=== PATIENT | female | born 1940 | race African-American/Black ===

== ENCOUNTER 2017-12-25 14:33 | Emergency (ER) | payer MEDICARE, MEDICAID ==
[~2017-12-25] VITALS: Ht 165.1 cm; Wt 60.0 kg
[~2017-12-25 14:33] MED LIST: ATOR10TA69; BENA20TA10 PO; LORA1TAB PO; PANT40TA4; ZET10
[2017-12-25] MEDS ORDERED: SODIUM CHLORIDE 0.9% 1,000 ML IV ONE (14:56)
[2017-12-25] MEDS ORDERED: MORPHINE SULFATE 2 MG/ML CPJ (NOT FOR IM USE) IV ONE (15:00)
[2017-12-25 17:18] LABS: BASOPHILS % 0.3 % (0.0-2.0); EOSINOPHILS % 2.1 % (0.0-5.0); HEMATOCRIT. 37.5 % (36.0-48.0); HEMOGLOBIN. 12.3 g/dL (12.0-16.0); LYMPHOCYTES % 25.2 % (20.0-50.0); MEAN CORPUSCULAR HEMOGLOBIN 29.4 pg (28.0-32.0); MEAN CORPUSCULAR VOLUME 89.7 fL (81.0-99.0); MEAN PLATELET VOLUME 8.3 fl (7.4-10.4); MONOCYTES % 9.5 % (2.0-8.0); NEUTROPHILS % 62.9 % (40.0-76.0); PLATELET 190 x1000/uL (130-400); RED BLOOD CELL COUNT 4.18 mill/uL (4.2-5.4); RED CELL DISTRIBUTION WIDTH 14.8 % (11.6-14.6)
[2017-12-25 17:20] LABS: CHLORIDE 107 mEq/L (98-107)
[2017-12-25 17:22] LABS: INR 1.2; PARTIAL THROMBOPLASTIN TIME 28.3 sec (23.4-31.0); PROTHROMBIN TIME 11.9 sec (9.1-11.1)
[2017-12-25 18:48] LABS: CLARITY URINE CLEAR (CLEAR); COLOR URINE YELLOW (YELLOW); KETONES URINE NEGATIVE (NEGATIVE); LEUKOCYTE ESTERASE URINE 2+ (NEGATIVE); NITRITE URINE NEGATIVE (NEGATIVE); OCCULT BLOOD URINE NEGATIVE (NEGATIVE); PROTEIN URINE NEGATIVE (NEGATIVE); SPECIFIC GRAVITY URINE 1.019 (1.005-1.030)
[2017-12-25 19:00] VITALS: BP 150/79
== END 2017-12-25 19:34 | disposition home or self-care (01) ==
LOC: ER 14:33
DX: N39.0 Urinary tract infection, site not specified (principal); M25.562 Pain in left knee; M25.561 Pain in right knee; R41.82 Altered mental status, unspecified; R53.1 Weakness; E11.9 Type 2 diabetes mellitus without complications; I10 Essential (primary) hypertension; F03.90 Unspecified dementia, unspecified severity, without behavioral disturbance, psychotic disturbance, mood disturbance, and anxiety; Z88.0 Allergy status to penicillin; Z79.899 Other long term (current) drug therapy
CPT/HCPCS: 36415; 70450; 71045; 73560; 74176; 80053; 81003; 83690; 83880; 84484; 85025; 85610; 85730; 86850; 86870; 86900; 86901; 87086; 93005; 93970; 99285; J7030

== ENCOUNTER 2018-02-10 18:03 | Inpatient (IN) | payer MEDICARE, MEDICAID ==
[~2018-02-10] VITALS: Ht 162.6 cm; Wt 59.9 kg
[~2018-02-10 18:03] MED LIST changes: -ATOR10TA69; +ATOR10TA69 PO; -PANT40TA4; +PANT40TA4 PO; -ZET10; +ZET10 PO
[2018-02-10 19:04] LABS: BASOPHILS % 0.5 % (0.0-2.0); EOSINOPHILS % 1.3 % (0.0-5.0); HEMATOCRIT. 42.1 % (36.0-48.0); HEMOGLOBIN. 13.8 g/dL (12.0-16.0); LYMPHOCYTES % 21.7 % (20.0-50.0); MEAN CORPUSCULAR HEMOGLOBIN 28.8 pg (28.0-32.0); MEAN PLATELET VOLUME 8.1 fl (7.4-10.4); MONOCYTES % 9.1 % (2.0-8.0); NEUTROPHILS % 67.4 % (40.0-76.0); PLATELET 263 x1000/uL (130-400); RED BLOOD CELL COUNT 4.78 mill/uL (4.2-5.4)
[2018-02-10 19:09] LABS: CHLORIDE 102 mEq/L (98-107)
[2018-02-10 19:43] LABS: CLARITY URINE CLOUDY (CLEAR); COLOR URINE DARK YELLOW (YELLOW); KETONES URINE TRACE (NEGATIVE); LEUKOCYTE ESTERASE URINE TRACE (NEGATIVE); NITRITE URINE NEGATIVE (NEGATIVE); OCCULT BLOOD URINE NEGATIVE (NEGATIVE); PH URINE 6.5 (4.5-8.0); PROTEIN URINE 1+ (NEGATIVE); SPECIFIC GRAVITY URINE 1.021 (1.005-1.030)
[2018-02-11] VITALS: BP 147/74
[2018-02-11] MEDS ORDERED: IPRATROPIUM/ALBUTEROL 0.5-3(2.5)MG/3ML NEB INH PRN (00:15)
[2018-02-11] MEDS ORDERED: ONDANSETRON HCL 4MG/2ML INJ IV PRN (00:15)
[2018-02-11] MEDS ORDERED: GUAIFENESIN 200MG/10ML SUGAR FREE UDC PO PRN (00:15)
[2018-02-11] MEDS ORDERED: DIPHENHYDRAMINE 50MG/ML VIAL IV PRN (00:15)
[2018-02-11] MEDS ORDERED: DOCUSATE SODIUM 100MG CAPSULE PO PRN (00:15)
[2018-02-11] MEDS ORDERED: NA PHOS,M-B/NA PHOS,DI-BA ENEMA 118ML PR PRN (00:15)
[2018-02-11] MEDS ORDERED: LORAZEPAM 2MG/ML CPJ IV PRN (00:15)
[2018-02-11] MEDS ORDERED: HYDROMORPHONE HCL/PF 2MG/ML CPJ IV PRN (00:15)
[2018-02-11] MEDS ORDERED: CLONIDINE 0.1MG TABLET PO PRN (00:15)
[2018-02-11] MEDS ORDERED: MAGNESIUM/ALUMINUM HYDROXIDE/SIMETHICONE 30ML UDC PO PRN (00:15)
[2018-02-11] MEDS ORDERED: DEXTROSE 50% WATER 50ML SYRINGE IV PRN (01:45)
[2018-02-11] MEDS: SODIUM CHLORIDE 0.45% 1,000 ML IV SCH (02:56)
[2018-02-11 04:39] VITALS: BP 151/84
[2018-02-11 06:15] LABS: CHLORIDE 106 mEq/L (98-107)
[2018-02-11] MEDS: BLOOD SUGAR DIAGNOSTIC STRIP TEST SCH ×4 (06:35→21:00)
[2018-02-11 08:00] VITALS: BP 142/73
[2018-02-11] MEDS: INSULIN LISPRO 100 UNITS/ML SUBCUT SCH ×4 (08:10→21:00)
[2018-02-11] MEDS: ASPIRIN 81MG EC TABLET PO SCH (09:09)
[2018-02-11] MEDS: ENOXAPARIN 40MG/0.4ML SYR SUBCUT SCH (09:10)
[2018-02-11] MEDS ORDERED: PNEUMOCOCCAL 23-VAL P-SAC VAC 0.5 ML IM ONE (09:45)
[2018-02-11] MEDS ORDERED: INFLUENZA VIRUS VACCINE(AFLURIA) 0.5ML SYR IM ONE (09:45)
[2018-02-11 12:00] VITALS: BP 119/65
[2018-02-11 16:00] VITALS: BP 119/65
[2018-02-11] MEDS ORDERED: MULT-1146 MT (19:05)
[2018-02-11] MEDS ORDERED: OMEP20CA10 MT (19:05)
[2018-02-11] MEDS ORDERED: FURO-152 MT (19:05)
[2018-02-11] MEDS ORDERED: ZOLP5TAB8 MT (19:05)
[2018-02-11] MEDS ORDERED: IBUP-2030 MT (19:05)
[2018-02-11 20:14] LABS: VITAMIN B12 SERUM 787 pg/mL (211-911)
[2018-02-11] MEDS: AMLODIPINE 5MG TABLET PO SCH (21:00)
[2018-02-11] MEDS: LORAZEPAM 2MG/ML CPJ IV PRN (22:26)
[2018-02-12 04:00] VITALS: BP 124/70
[2018-02-12] MEDS: SODIUM CHLORIDE 0.45% 1,000 ML IV SCH (04:33)
[2018-02-12] MEDS: BLOOD SUGAR DIAGNOSTIC STRIP TEST SCH ×4 (06:42→21:00)
[2018-02-12] MEDS: INSULIN LISPRO 100 UNITS/ML SUBCUT SCH ×4 (07:59→21:00)
[2018-02-12 08:00] VITALS: BP 162/93
[2018-02-12 08:30] LABS: BASOPHILS % 0.6 % (0.0-2.0); EOSINOPHILS % 2.3 % (0.0-5.0); HEMATOCRIT. 40.4 % (36.0-48.0); HEMOGLOBIN. 13.4 g/dL (12.0-16.0); LYMPHOCYTES % 19.6 % (20.0-50.0); MEAN CORPUSCULAR HEMOGLOBIN 29.1 pg (28.0-32.0); MEAN CORPUSCULAR VOLUME 87.9 fL (81.0-99.0); MEAN PLATELET VOLUME 8.1 fl (7.4-10.4); MONOCYTES % 10.8 % (2.0-8.0); NEUTROPHILS % 66.7 % (40.0-76.0); PLATELET 250 x1000/uL (130-400)
[2018-02-12] MEDS: ASPIRIN 81MG EC TABLET PO SCH ×2 (09:00→09:08)
[2018-02-12] MEDS: AMLODIPINE 5MG TABLET PO SCH ×3 (09:00→21:00)
[2018-02-12] MEDS: HYDROCODONE/ACETAMINOPHEN 5/325MG TABLET PO PRN ×2 (09:07→09:27)
[2018-02-12] MEDS: ENOXAPARIN 40MG/0.4ML SYR SUBCUT SCH (09:08)
[2018-02-12 09:39] LABS: CHLORIDE 106 mEq/L (98-107)
[2018-02-12 09:51] LABS: LDL CHOLESTEROL 40 mg/dL (5-100)
[2018-02-12 09:52] LABS: HDL CHOLESTEROL 81 mg/dL (40-59); T4 FREE 1.33 ng/dL (0.76-1.46)
[2018-02-12 12:00] VITALS: BP 148/82
[2018-02-12 16:00] VITALS: BP 148/82
[2018-02-12] MEDS: LORAZEPAM 2MG/ML CPJ IV PRN (19:59)
[2018-02-12 20:00] VITALS: BP 139/92
[2018-02-13] VITALS (7 sets, daily range): BP systolic 100–169; BP diastolic 69–106
[2018-02-13] MEDS: SODIUM CHLORIDE 0.45% 1,000 ML IV SCH (03:00)
[2018-02-13 07:14] LABS: HEMATOCRIT 38.1 % (36.0-48.0); HEMOGLOBIN 12.4 g/dL (12.0-16.0); MEAN CORPUSCULAR HEMOGLOBIN 28.6 pg (28.0-32.0); MEAN CORPUSCULAR VOLUME 88.1 fL (81.0-99.0); PLATELET 262 x1000/uL (130-400); RED BLOOD CELL COUNT 4.33 mill/uL (4.2-5.4)
[2018-02-13 08:02] LABS: CHLORIDE 102 mEq/L (98-107)
[2018-02-13] MEDS: INSULIN LISPRO 100 UNITS/ML SUBCUT SCH ×4 (08:10→21:00)
[2018-02-13] MEDS ORDERED: ZOLP10TA6 MT (08:45)
[2018-02-13] MEDS: AMLODIPINE 5MG TABLET PO SCH ×2 (08:54→21:01)
[2018-02-13] MEDS: ASPIRIN 81MG EC TABLET PO SCH (08:54)
[2018-02-13] MEDS: RISPERIDONE 1MG TABLET PO SCH ×2 (08:54→21:01)
[2018-02-13] MEDS: MEMANTINE HCL 5MG TABLET PO SCH (08:55)
[2018-02-13] MEDS: ENOXAPARIN 40MG/0.4ML SYR SUBCUT SCH (08:55)
[2018-02-13] MEDS: BLOOD SUGAR DIAGNOSTIC STRIP TEST SCH ×3 (12:40→21:46)
[2018-02-13] MEDS: LISINOPRIL 10MG TABLET PO SCH ×2 (13:15→21:02)
[2018-02-13] MEDS: ACETAMINOPHEN 325MG TABLET PO PRN (21:35)
[2018-02-14] VITALS: BP 92/56
[2018-02-14 04:00] VITALS: BP 102/53
[2018-02-14] MEDS: INSULIN LISPRO 100 UNITS/ML SUBCUT SCH ×3 (06:18→18:10)
[2018-02-14] MEDS: BLOOD SUGAR DIAGNOSTIC STRIP TEST SCH ×3 (06:18→17:40)
[2018-02-14 08:00] VITALS: BP 104/59
[2018-02-14] MEDS ORDERED: HALOPERIDOL LACTATE 5MG/ML VIAL IM PRN (08:00)
[2018-02-14] MEDS: ENOXAPARIN 40MG/0.4ML SYR SUBCUT SCH (08:27)
[2018-02-14] MEDS: RISPERIDONE 1MG TABLET PO SCH (08:28)
[2018-02-14] MEDS: ASPIRIN 81MG EC TABLET PO SCH (08:28)
[2018-02-14] MEDS: MEMANTINE HCL 5MG TABLET PO SCH (08:28)
[2018-02-14] MEDS: LISINOPRIL 10MG TABLET PO SCH (08:29)
[2018-02-14] MEDS: AMLODIPINE 5MG TABLET PO SCH (08:30)
[2018-02-14] MEDS: ACETAMINOPHEN 325MG TABLET PO PRN (09:50)
[2018-02-14] MEDS: LORAZEPAM 2MG/ML CPJ IV PRN (11:19)
[2018-02-14 12:00] VITALS: BP 98/54
[2018-02-14 13:29] VITALS: BP 104/87
[2018-02-14 16:00] VITALS: BP 100/56
== END 2018-02-14 19:05 | disposition home or self-care (01) | DRG 73 ==
LOC: ER 18:03 → 7WST 20:46 → ENRESERV 22:09
PROVIDERS: ADMIT Internal Medicine; ATTEND Internal Medicine
DX: G90.8 Other disorders of autonomic nervous system (principal); G93.41 Metabolic encephalopathy; E86.0 Dehydration; F03.90 Unspecified dementia, unspecified severity, without behavioral disturbance, psychotic disturbance, mood disturbance, and anxiety; M19.90 Unspecified osteoarthritis, unspecified site; E11.9 Type 2 diabetes mellitus without complications; E78.5 Hyperlipidemia, unspecified; I11.0 Hypertensive heart disease with heart failure; I50.9 Heart failure, unspecified; I25.10 Atherosclerotic heart disease of native coronary artery without angina pectoris; K21.9 Gastro-esophageal reflux disease without esophagitis; Z74.01 Bed confinement status; Z79.899 Other long term (current) drug therapy; Z88.0 Allergy status to penicillin
CPT/HCPCS: 36415; 71045; 80048; 80061; 82607; 82962; 83880; 84439; 84443; 84484; 85027; 90686; 90732; 93005; 93306; 99285; J1200; J1630; J1650; J2060

== ENCOUNTER 2018-04-24 19:22 | Inpatient (IN) | payer MEDICARE, MEDICAID ==
[~2018-04-24] VITALS: Ht 167.6 cm; Wt 71.2 kg
[~2018-04-24 19:22] MED LIST changes: +FURO-152 MT; +IBUP-2030 MT; +MULT-1146 MT; +OMEP20CA10 MT; -PANT40TA4 PO; +ZOLP10TA6 MT
[2018-04-24] MEDS ORDERED: SODIUM CHLORIDE 0.9% 1,000 ML IV ONE (20:57)
[2018-04-24] MEDS ORDERED: LEVOFLOXACIN 750MG PREMIX 150 ML IV ONE (21:00)
[2018-04-24 22:46] LABS: CLARITY URINE TURBID (CLEAR); COLOR URINE DARK YELLOW (YELLOW); KETONES URINE TRACE (NEGATIVE); LEUKOCYTE ESTERASE URINE 3+ (NEGATIVE); NITRITE URINE NEGATIVE (NEGATIVE); OCCULT BLOOD URINE 1+ (NEGATIVE); PH URINE 5.5 (4.5-8.0); PROTEIN URINE 1+ (NEGATIVE); SPECIFIC GRAVITY URINE 1.023 (1.005-1.030)
[2018-04-24 23:09] LABS: BASOPHILS % 0.5 % (0.0-2.0); EOSINOPHILS % 0.5 % (0.0-5.0); HEMATOCRIT. 38.3 % (36.0-48.0); HEMOGLOBIN. 12.6 g/dL (12.0-16.0); MEAN CORPUSCULAR VOLUME 87.9 fL (81.0-99.0); MONOCYTES % 5.8 % (2.0-8.0); NEUTROPHILS % 81.2 % (40.0-76.0); PLATELET 297 x1000/uL (130-400); RED BLOOD CELL COUNT 4.36 mill/uL (4.2-5.4); RED CELL DISTRIBUTION WIDTH 15.4 % (11.6-14.6)
[2018-04-24 23:15] LABS: CHLORIDE 102 mEq/L (98-107); INR 1.1; PARTIAL THROMBOPLASTIN TIME 29.5 sec (23.4-31.0); PROTHROMBIN TIME 11.4 sec (9.1-11.1)
[2018-04-25] MEDS ORDERED: CLONIDINE 0.1MG TABLET PO PRN (00:15)
[2018-04-25] MEDS ORDERED: MAGNESIUM/ALUMINUM HYDROXIDE/SIMETHICONE 30ML UDC PO PRN (00:15)
[2018-04-25] MEDS ORDERED: IPRATROPIUM/ALBUTEROL 0.5-3(2.5)MG/3ML NEB INH PRN (00:15)
[2018-04-25] MEDS ORDERED: DIPHENHYDRAMINE 50MG/ML VIAL IV PRN (00:15)
[2018-04-25] MEDS ORDERED: ACETAMINOPHEN 650MG SUPP PR PRN (00:15)
[2018-04-25] MEDS ORDERED: DOCUSATE SODIUM 100MG CAPSULE PO PRN (00:15)
[2018-04-25] MEDS ORDERED: ACETAMINOPHEN 650MG/20.3ML UDC GT PRN (00:15)
[2018-04-25] MEDS ORDERED: NA PHOS,M-B/NA PHOS,DI-BA ENEMA 118ML PR PRN (00:15)
[2018-04-25] MEDS ORDERED: ACETAMINOPHEN 325MG TABLET PO PRN (00:15)
[2018-04-25] MEDS ORDERED: GUAIFENESIN 200MG/10ML SUGAR FREE UDC PO PRN (00:15)
[2018-04-25] MEDS ORDERED: ONDANSETRON HCL 4MG/2ML INJ IV PRN (00:15)
[2018-04-25 06:10] VITALS: BP 141/90
[2018-04-25 07:30] VITALS: BP 139/66
[2018-04-25 08:00] VITALS: BP 139/66
[2018-04-25] MEDS: SODIUM CHLORIDE 0.9% 1,000 ML IV SCH ×2 (10:21→21:27)
[2018-04-25 12:00] VITALS: BP 145/73
[2018-04-25] MEDS ORDERED: HALOPERIDOL LACTATE 5MG/ML VIAL IM PRN (12:30)
[2018-04-25 13:43] LABS: BASOPHILS % 0.4 % (0.0-2.0); EOSINOPHILS % 1.2 % (0.0-5.0); HEMATOCRIT. 38.7 % (36.0-48.0); HEMOGLOBIN. 12.6 g/dL (12.0-16.0); MEAN CORPUSCULAR HEMOGLOBIN 28.9 pg (28.0-32.0); MEAN CORPUSCULAR VOLUME 88.6 fL (81.0-99.0); MEAN PLATELET VOLUME 7.9 fl (7.4-10.4); MONOCYTES % 7.1 % (2.0-8.0); NEUTROPHILS % 73.3 % (40.0-76.0); PLATELET 283 x1000/uL (130-400); RED BLOOD CELL COUNT 4.37 mill/uL (4.2-5.4); RED CELL DISTRIBUTION WIDTH 15.7 % (11.6-14.6)
[2018-04-25 13:54] LABS: CLARITY URINE CLEAR (CLEAR); COLOR URINE YELLOW (YELLOW); KETONES URINE NEGATIVE (NEGATIVE); LEUKOCYTE ESTERASE URINE 2+ (NEGATIVE); NITRITE URINE NEGATIVE (NEGATIVE); OCCULT BLOOD URINE 2+ (NEGATIVE); PH URINE 6.5 (4.5-8.0); PROTEIN URINE 1+ (NEGATIVE); SPECIFIC GRAVITY URINE 1.004 (1.005-1.030); UROBILINOGEN URINE 0.2 E.U./dL (0.2-1.0)
[2018-04-25 14:10] LABS: CHLORIDE 108 mEq/L (98-107)
[2018-04-25] MEDS ORDERED: ZOLP5TAB8 MT (14:29)
[2018-04-25] MEDS ORDERED: LORA0.5T2 PO (14:29)
[2018-04-25 15:05] LABS: *AMPHETAMINES SCREEN URINE NEGATIVE (NEGATIVE); *BARBITURATES SCREEN URINE NEGATIVE (NEGATIVE); *BENZODIAZEPINES SCREEN URINE NEGATIVE (NEGATIVE); *COCAINE SCREEN URINE NEGATIVE (NEGATIVE)
[2018-04-25 15:06] LABS: CANNABINOID URINE SCREEN NEGATIVE (NEGATIVE); METHADONE URINE SCREEN NEGATIVE (NEGATIVE); OPIATES URINE SCREEN NEGATIVE (NEGATIVE); PHENCYCLIDINE URINE SCREEN NEGATIVE (NEGATIVE)
[2018-04-25 16:00] VITALS: BP 146/76
[2018-04-25] MEDS: LAMOTRIGINE 25MG TABLET PO SCH (17:57)
[2018-04-25 20:19] VITALS: BP 142/73
[2018-04-25] MEDS: SODIUM CHLORIDE 0.9% INJ 3ML FLUSH IVF SCH ×2 (21:23→21:27)
[2018-04-25] MEDS: ENOXAPARIN 40MG/0.4ML SYR SUBCUT SCH (21:24)
[2018-04-26] VITALS: BP 137/71
[2018-04-26 04:00] VITALS: BP 147/92
[2018-04-26] MEDS: SODIUM CHLORIDE 0.9% INJ 3ML FLUSH IVF SCH ×2 (06:00→14:00)
[2018-04-26] MEDS: LAMOTRIGINE 25MG TABLET PO SCH ×2 (09:00→09:33)
[2018-04-26] MEDS: SODIUM CHLORIDE 0.9% 1,000 ML IV SCH (09:34)
[2018-04-26 16:56] VITALS: BP 133/70
[2018-04-26] MEDS ORDERED: LAM25 MT (17:27)
[2018-04-26] MEDS: ENOXAPARIN 40MG/0.4ML SYR SUBCUT SCH (21:00)
== END 2018-04-26 23:40 | disposition home or self-care (01) | DRG 70 ==
LOC: ER 19:49 → 6WST 04-25 00:08 → EDBEDREQ 04-25 00:11 → EDBEDREQTM 04-25 00:11 → ENRESERV 04-25 04:46
PROVIDERS: ADMIT Family Medicine; ATTEND Family Medicine
DX: G93.41 Metabolic encephalopathy (principal); E43 Unspecified severe protein-calorie malnutrition; N39.0 Urinary tract infection, site not specified; E11.9 Type 2 diabetes mellitus without complications; E86.0 Dehydration; F03.90 Unspecified dementia, unspecified severity, without behavioral disturbance, psychotic disturbance, mood disturbance, and anxiety; G40.909 Epilepsy, unspecified, not intractable, without status epilepticus; I10 Essential (primary) hypertension; K21.9 Gastro-esophageal reflux disease without esophagitis; M19.90 Unspecified osteoarthritis, unspecified site; Z74.01 Bed confinement status; Z88.0 Allergy status to penicillin; Z68.25 Body mass index [BMI] 25.0-25.9, adult; Z79.899 Other long term (current) drug therapy
CPT/HCPCS: 36415; 71045; 80305; 83605; 83880; 84484; 93005; 99285; A6261; J1200; J1630; J1650; J1956; J7030

== ENCOUNTER 2018-06-29 13:24 | Inpatient (IN) | payer MEDICARE, MEDICAID ==
[~2018-06-29] VITALS: Ht 152.4 cm; Wt 55.3 kg
[~2018-06-29 13:24] MED LIST changes: -IBUP-2030 MT; +LAM25 MT; +LORA0.5T2 PO; -LORA1TAB PO; -ZET10 PO; -ZOLP10TA6 MT
[2018-06-29 15:25] LABS: BASOPHILS % 0.5 % (0.0-2.0); EOSINOPHILS % 1.2 % (0.0-5.0); HEMATOCRIT. 35.7 % (36.0-48.0); HEMOGLOBIN. 11.7 g/dL (12.0-16.0); LYMPHOCYTES % 35.7 % (20.0-50.0); MEAN CORPUSCULAR VOLUME 88.7 fL (81.0-99.0); MEAN PLATELET VOLUME 8.1 fl (7.4-10.4); NEUTROPHILS % 52.6 % (40.0-76.0); PLATELET 236 x1000/uL (130-400); RED BLOOD CELL COUNT 4.02 mill/uL (4.2-5.4); RED CELL DISTRIBUTION WIDTH 15.8 % (11.6-14.6)
[2018-06-29 15:31] LABS: CHLORIDE 113 mEq/L (98-107); INR 1.1; PROTHROMBIN TIME 11.1 sec (9.1-11.1)
[2018-06-29 15:37] LABS: ETHANOL BLOOD < 10 mg/dL
[2018-06-29] MEDS ORDERED: POTASSIUM CHLORIDE 20MEQ TABLET SR PO ONE (17:30)
[2018-06-29 19:31] LABS: CLARITY URINE TURBID (CLEAR); COLOR URINE DARK YELLOW (YELLOW); KETONES URINE 1+ (NEGATIVE); LEUKOCYTE ESTERASE URINE 2+ (NEGATIVE); NITRITE URINE NEGATIVE (NEGATIVE); OCCULT BLOOD URINE TRACE (NEGATIVE); PROTEIN URINE TRACE (NEGATIVE); SPECIFIC GRAVITY URINE 1.028 (1.005-1.030)
[2018-06-29 20:17] LABS: *AMPHETAMINES SCREEN URINE NEGATIVE (NEGATIVE); *BARBITURATES SCREEN URINE NEGATIVE (NEGATIVE); *BENZODIAZEPINES SCREEN URINE NEGATIVE (NEGATIVE); *COCAINE SCREEN URINE NEGATIVE (NEGATIVE)
[2018-06-29 20:18] LABS: CANNABINOID URINE SCREEN NEGATIVE (NEGATIVE); METHADONE URINE SCREEN NEGATIVE (NEGATIVE); OPIATES URINE SCREEN NEGATIVE (NEGATIVE); PHENCYCLIDINE URINE SCREEN NEGATIVE (NEGATIVE)
[2018-06-30] MEDS ORDERED: LORAZEPAM 0.5MG TABLET PO ONE (14:45)
[2018-06-30] MEDS ORDERED: NITROFURANTOIN 100MG M/M CAPSULE PO ONE (14:45)
[2018-06-30] MEDS ORDERED: FLUCONAZOLE 150MG TABLET PO NR (16:15)
[2018-06-30] MEDS ORDERED: LORAZEPAM 0.5MG TABLET PO NR (20:15)
[2018-06-30] MEDS ORDERED: NITROFURANTOIN 100MG M/M CAPSULE PO NR (20:15)
[2018-07-01] MEDS ORDERED: ACETAMINOPHEN 325MG TABLET PO PRN (08:45)
[2018-07-01] MEDS ORDERED: LORAZEPAM 2MG/ML CPJ IV PRN ×2 (08:45→10:15)
[2018-07-01] MEDS ORDERED: ONDANSETRON HCL 4MG/2ML INJ IV PRN (08:45)
[2018-07-01] MEDS ORDERED: LEVOFLOXACIN 500MG PREMIX 100 ML IV NR (09:15)
[2018-07-01 12:00] VITALS: BP 117/64
[2018-07-01] MEDS: LAMOTRIGINE 25MG TABLET PO SCH (12:00)
[2018-07-01 12:16] VITALS: BP 117/76
[2018-07-01] MEDS: BENAZEPRIL 10MG TABLET PO SCH (13:00)
[2018-07-01 16:00] VITALS: BP 134/62
[2018-07-01 20:00] VITALS: BP 147/75
[2018-07-01] MEDS: RISPERIDONE 1MG TABLET PO SCH (22:33)
[2018-07-01] MEDS: ATORVASTATIN CALCIUM 10MG TABLET PO SCH (22:33)
[2018-07-02] VITALS: BP 154/68
[2018-07-02 04:00] VITALS: BP 165/75
[2018-07-02] MEDS: OMEPRAZOLE 20MG CAPSULE EXTENDED RELEASE PO SCH (06:37)
[2018-07-02 07:49] LABS: BASOPHILS % 0.7 % (0.0-2.0); EOSINOPHILS % 1.9 % (0.0-5.0); HEMATOCRIT. 39.6 % (36.0-48.0); HEMOGLOBIN. 12.9 g/dL (12.0-16.0); LYMPHOCYTES % 33.3 % (20.0-50.0); MEAN CORPUSCULAR HEMOGLOBIN 28.9 pg (28.0-32.0); MEAN PLATELET VOLUME 8.3 fl (7.4-10.4); MONOCYTES % 10.8 % (2.0-8.0); NEUTROPHILS % 53.3 % (40.0-76.0); PLATELET 242 x1000/uL (130-400); RED BLOOD CELL COUNT 4.45 mill/uL (4.2-5.4); RED CELL DISTRIBUTION WIDTH 16.1 % (11.6-14.6)
[2018-07-02 07:56] LABS: CHLORIDE 110 mEq/L (98-107)
[2018-07-02 08:00] VITALS: BP 134/64
[2018-07-02] MEDS: BENAZEPRIL 10MG TABLET PO SCH (08:22)
[2018-07-02] MEDS: RISPERIDONE 1MG TABLET PO SCH ×2 (08:22→21:54)
[2018-07-02] MEDS: LAMOTRIGINE 25MG TABLET PO SCH (08:22)
[2018-07-02 12:00] VITALS: BP 132/55
[2018-07-02] MEDS ORDERED: LEVOFLOXACIN 250MG PREMIX 50 ML IV SCH (12:00)
[2018-07-02 16:00] VITALS: BP_SYST 105; BP_SYST 133; BP_DIAS 62; BP_DIAS 67
[2018-07-02 20:00] VITALS: BP 107/63
[2018-07-02] MEDS: ATORVASTATIN CALCIUM 10MG TABLET PO SCH (21:54)
[2018-07-03] VITALS: BP 99/54
[2018-07-03 04:00] VITALS: BP 108/66
[2018-07-03] MEDS: OMEPRAZOLE 20MG CAPSULE EXTENDED RELEASE PO SCH (06:20)
[2018-07-03] MEDS: LAMOTRIGINE 25MG TABLET PO SCH (09:00)
[2018-07-03] MEDS: BENAZEPRIL 10MG TABLET PO SCH (09:00)
[2018-07-03] MEDS: RISPERIDONE 1MG TABLET PO SCH ×2 (09:00→21:00)
[2018-07-03] MEDS: LEVOFLOXACIN 250MG TABLET PO SCH (11:00)
[2018-07-03 20:00] VITALS: BP 151/99
[2018-07-03] MEDS: ATORVASTATIN CALCIUM 10MG TABLET PO SCH (21:00)
[2018-07-04] VITALS: BP 149/73
[2018-07-04 04:00] VITALS: BP 136/80
[2018-07-04 07:00] VITALS: BP 184/91
[2018-07-04] MEDS: OMEPRAZOLE 20MG CAPSULE EXTENDED RELEASE PO SCH (07:20)
[2018-07-04] MEDS: BENAZEPRIL 10MG TABLET PO SCH (09:40)
[2018-07-04] MEDS: RISPERIDONE 1MG TABLET PO SCH (09:40)
[2018-07-04] MEDS: LEVOFLOXACIN 250MG TABLET PO SCH (09:40)
[2018-07-04] MEDS: LAMOTRIGINE 25MG TABLET PO SCH (09:40)
[2018-07-04 09:51] VITALS: BP 174/95
[2018-07-04 10:20] VITALS: BP 174/95
[2018-07-04 12:00] VITALS: BP 96/33
== END 2018-07-04 12:20 | DRG 689 ==
LOC: ER 13:24 → 6EST 06-30 17:07 → ENRESERV 07-01 10:21 → CANRESERV 07-01 10:21
PROVIDERS: ADMIT Internal Medicine; ATTEND Internal Medicine
DX: N39.0 Urinary tract infection, site not specified (principal); G93.41 Metabolic encephalopathy; E44.0 Moderate protein-calorie malnutrition; I50.32 Chronic diastolic (congestive) heart failure; E87.0 Hyperosmolality and hypernatremia; G40.909 Epilepsy, unspecified, not intractable, without status epilepticus; I11.0 Hypertensive heart disease with heart failure; F03.90 Unspecified dementia, unspecified severity, without behavioral disturbance, psychotic disturbance, mood disturbance, and anxiety; E87.6 Hypokalemia; E87.8 Other disorders of electrolyte and fluid balance, not elsewhere classified; K21.9 Gastro-esophageal reflux disease without esophagitis; Z82.49 Family history of ischemic heart disease and other diseases of the circulatory system; Z91.14 Patient's other noncompliance with medication regimen; Z88.0 Allergy status to penicillin; Z68.23 Body mass index [BMI] 23.0-23.9, adult
CPT/HCPCS: 99284; P9612; 36415; 71045; 80048; 80305; 80307; 80329; 82962; 84484; 93005; 93970; J1956; J2060; J7050

== ENCOUNTER 2018-09-03 12:40 | Emergency (ER) | payer MEDICARE, MEDICAID ==
[~2018-09-03] VITALS: Ht 167.6 cm; Wt 60.0 kg
[2018-09-03 13:41] LABS: BASOPHILS % 0.9 % (0.0-2.0); EOSINOPHILS % 0.6 % (0.0-5.0); HEMATOCRIT. 39.1 % (36.0-48.0); HEMOGLOBIN. 12.8 g/dL (12.0-16.0); LYMPHOCYTES % 14.3 % (20.0-50.0); MEAN CORPUSCULAR HEMOGLOBIN 28.9 pg (28.0-32.0); MEAN CORPUSCULAR VOLUME 88.2 fL (81.0-99.0); MEAN PLATELET VOLUME 7.9 fl (7.4-10.4); MONOCYTES % 5.1 % (2.0-8.0); NEUTROPHILS % 79.1 % (40.0-76.0); PLATELET 283 x1000/uL (130-400); RED BLOOD CELL COUNT 4.44 mill/uL (4.2-5.4); RED CELL DISTRIBUTION WIDTH 16.9 % (11.6-14.6)
[2018-09-03 14:19] LABS: CHLORIDE 107 mEq/L (98-107)
[2018-09-03 15:36] LABS: CLARITY URINE CLOUDY (CLEAR); COLOR URINE YELLOW (YELLOW); KETONES URINE TRACE (NEGATIVE); LEUKOCYTE ESTERASE URINE 1+ (NEGATIVE); NITRITE URINE POSITIVE (NEGATIVE); OCCULT BLOOD URINE NEGATIVE (NEGATIVE); PROTEIN URINE 1+ (NEGATIVE); SPECIFIC GRAVITY URINE 1.018 (1.005-1.030)
[2018-09-03 19:46] VITALS: BP 141/128
== END 2018-09-03 20:17 | disposition home or self-care (01) ==
LOC: ER 12:45
DX: R55 Syncope and collapse (principal); R56.9 Unspecified convulsions; I11.0 Hypertensive heart disease with heart failure; I50.9 Heart failure, unspecified; F03.90 Unspecified dementia, unspecified severity, without behavioral disturbance, psychotic disturbance, mood disturbance, and anxiety; K21.9 Gastro-esophageal reflux disease without esophagitis; E78.00 Pure hypercholesterolemia, unspecified; Z87.440 Personal history of urinary (tract) infections; Z88.0 Allergy status to penicillin; Z79.899 Other long term (current) drug therapy
CPT/HCPCS: 36415; 70450; 71045; 80053; 81003; 83605; 84443; 85025; 99284; P9612

== ENCOUNTER 2018-12-27 18:36 | Inpatient (IN) | payer MEDICARE, MEDICAID ==
[~2018-12-27] VITALS: Ht 160 cm; Wt 50.8 kg
[~2018-12-27 18:36] MED LIST changes: -OMEP20CA10 MT; +OMEP20CA5 MT
[2018-12-27] MEDS ORDERED: SODIUM CHLORIDE 0.9% 500 ML IV ONE (19:13)
[2018-12-27 19:45] LABS: CHLORIDE 110 mEq/L (98-107)
[2018-12-27 19:46] LABS: BASOPHILS % 0.6 % (0.0-2.0); HEMATOCRIT. 37.8 % (36.0-48.0); HEMOGLOBIN. 12.4 g/dL (12.0-16.0); LYMPHOCYTES % 24.7 % (20.0-50.0); MEAN CORPUSCULAR HEMOGLOBIN 28.8 pg (28.0-32.0); MEAN PLATELET VOLUME 7.9 fl (7.4-10.4); MONOCYTES % 6.6 % (2.0-8.0); NEUTROPHILS % 67.1 % (40.0-76.0); PLATELET 258 x1000/uL (130-400); RED CELL DISTRIBUTION WIDTH 15.7 % (11.6-14.6)
[2018-12-27 19:49] LABS: INR 1.1; PROTHROMBIN TIME 11.1 sec (9.6-11.0)
[2018-12-27 19:54] LABS: CREATINE KINASE 43 IU/L (26-192)
[2018-12-27 19:56] LABS: CREATINE KINASE MB FRACTION < 1.0 ng/mL (0.5-3.6)
[2018-12-27] MEDS ORDERED: GUAIFENESIN 200MG/10ML SUGAR FREE UDC PO PRN (21:30)
[2018-12-27] MEDS ORDERED: ACETAMINOPHEN 325MG TABLET PO PRN (21:30)
[2018-12-27] MEDS ORDERED: ONDANSETRON HCL 4MG/2ML INJ IV PRN (21:30)
[2018-12-27] MEDS ORDERED: MAGNESIUM/ALUMINUM HYDROXIDE/SIMETHICONE 30ML UDC PO PRN (21:30)
[2018-12-27 23:50] VITALS: BP 155/87
[2018-12-28] VITALS: BP 140/83
[2018-12-28] MEDS: SODIUM CHLORIDE 0.45% 1,000 ML IV SCH ×2 (00:51→18:09)
[2018-12-28 08:00] VITALS: BP 151/96
[2018-12-28 08:58] LABS: BASOPHILS % 0.4 % (0.0-2.0); EOSINOPHILS % 1.3 % (0.0-5.0); HEMATOCRIT. 35.9 % (36.0-48.0); HEMOGLOBIN. 11.8 g/dL (12.0-16.0); LYMPHOCYTES % 34.3 % (20.0-50.0); MEAN CORPUSCULAR HEMOGLOBIN 28.7 pg (28.0-32.0); MEAN CORPUSCULAR VOLUME 87.8 fL (81.0-99.0); MONOCYTES % 8.5 % (2.0-8.0); NEUTROPHILS % 55.5 % (40.0-76.0); PLATELET 262 x1000/uL (130-400)
[2018-12-28 09:14] LABS: CHLORIDE 111 mEq/L (98-107)
[2018-12-28] MEDS: ENOXAPARIN 40MG/0.4ML SYR SUBCUT SCH (10:33)
[2018-12-28] MEDS ORDERED: LORAZEPAM 2MG/ML CPJ IV PRN (11:15)
[2018-12-28 12:00] VITALS: BP 140/68
[2018-12-28 16:00] VITALS: BP 172/108
[2018-12-28] MEDS: CLONIDINE 0.1MG TABLET PO PRN (18:09)
[2018-12-29] VITALS: BP 190/80
[2018-12-29] MEDS: CLONIDINE 0.1MG TABLET PO PRN ×2 (00:07→09:39)
[2018-12-29 04:00] VITALS: BP 153/98
[2018-12-29 08:25] VITALS: BP 135/111
[2018-12-29] MEDS: ENOXAPARIN 40MG/0.4ML SYR SUBCUT SCH (08:47)
[2018-12-29] MEDS: SODIUM CHLORIDE 0.45% 1,000 ML IV SCH (08:50)
[2018-12-29] MEDS ORDERED: HYDRALAZINE 20MG/ML VIAL IV PRN (11:45)
[2018-12-29 12:01] VITALS: BP 123/64
[2018-12-29] MEDS: LISINOPRIL 20MG TABLET PO SCH (12:10)
[2018-12-29 15:19] VITALS: BP 127/81
[2018-12-29 20:00] VITALS: BP 152/76
[2018-12-30] VITALS: BP 144/76
[2018-12-30] MEDS: SODIUM CHLORIDE 0.45% 1,000 ML IV SCH (02:37)
[2018-12-30 04:00] VITALS: BP 138/72
[2018-12-30 08:00] VITALS: BP 141/87
[2018-12-30] MEDS: LISINOPRIL 20MG TABLET PO SCH (08:36)
[2018-12-30] MEDS: ENOXAPARIN 40MG/0.4ML SYR SUBCUT SCH (08:48)
[2018-12-30 11:49] VITALS: BP 153/90
[2018-12-30 15:03] VITALS: BP 153/90
[2018-12-30 15:51] VITALS: BP 139/77
== END 2018-12-30 18:33 | DRG 73 ==
LOC: ER 18:36 → 5WST 20:30 → EDBEDREQTM 20:36 → EDBEDREQ 20:36 → ENRESERV 21:50 → CANBEDREQ 12-28 09:57
PROVIDERS: ADMIT Hospitalist; ATTEND Hospitalist
DX: G90.8 Other disorders of autonomic nervous system (principal); E43 Unspecified severe protein-calorie malnutrition; Z68.1 Body mass index [BMI] 19.9 or less, adult; F03.90 Unspecified dementia, unspecified severity, without behavioral disturbance, psychotic disturbance, mood disturbance, and anxiety; I50.9 Heart failure, unspecified; I11.0 Hypertensive heart disease with heart failure; E78.5 Hyperlipidemia, unspecified; G40.909 Epilepsy, unspecified, not intractable, without status epilepticus; K21.9 Gastro-esophageal reflux disease without esophagitis; E78.00 Pure hypercholesterolemia, unspecified; Z66 Do not resuscitate; Z82.49 Family history of ischemic heart disease and other diseases of the circulatory system; Z79.899 Other long term (current) drug therapy; Z88.0 Allergy status to penicillin; Z87.440 Personal history of urinary (tract) infections
CPT/HCPCS: 36415; 71045; 82550; 82553; 83605; 83735; 83880; 84443; 84484; 93005; 93970; 99285; J1650; J7040

== ENCOUNTER 2019-02-05 13:20 | Inpatient (IN) | payer MEDICAID, MEDICARE ==
[~2019-02-05] VITALS: Ht 170.2 cm; Wt 63.6 kg
[2019-02-05] MEDS ORDERED: CEFEPIME 1,000 MG in DEXTROSE 5% WATER 50 ML IV STA (13:41)
[2019-02-05] MEDS ORDERED: CEFEPIME 1,000 MG in DEXTROSE 5% WATER 50 ML IV SCH (13:45)
[2019-02-05] MEDS ORDERED: VANCOMYCIN 1 G PREMIX 200 ML IV ONE (13:45)
[2019-02-05] MEDS ORDERED: SODIUM CHLORIDE 0.9% 1000ML BAG (SEPSIS BOLUS) IV ONE (13:45)
[2019-02-05 14:20] LABS: BASOPHILS % 0.4 % (0.0-2.0); EOSINOPHILS % 0.6 % (0.0-5.0); HEMATOCRIT. 38.3 % (36.0-48.0); HEMOGLOBIN. 12.3 g/dL (12.0-16.0); LYMPHOCYTES % 14.1 % (20.0-50.0); MEAN CORPUSCULAR HEMOGLOBIN 28.7 pg (28.0-32.0); MEAN CORPUSCULAR VOLUME 89.1 fL (81.0-99.0); MEAN PLATELET VOLUME 8.3 fl (7.4-10.4); MONOCYTES % 5.9 % (2.0-8.0); PLATELET 241 x1000/uL (130-400); RED CELL DISTRIBUTION WIDTH 16.8 % (11.6-14.6)
[2019-02-05 14:22] LABS: CHLORIDE 107 mEq/L (98-107)
[2019-02-05 14:23] LABS: INR 1.1; PROTHROMBIN TIME 11.3 sec (9.6-11.0)
[2019-02-05] MEDS ORDERED: ONDANSETRON HCL 4MG/2ML INJ IV PRN (16:15)
[2019-02-05] MEDS ORDERED: LEVOFLOXACIN 500MG PREMIX 100 ML IV SCH (16:15)
[2019-02-05] MEDS ORDERED: ACETAMINOPHEN 650MG SUPP PR PRN (16:15)
[2019-02-05 17:42] LABS: CLARITY URINE CLEAR (CLEAR); COLOR URINE YELLOW (YELLOW); KETONES URINE NEGATIVE (NEGATIVE); LEUKOCYTE ESTERASE URINE NEGATIVE (NEGATIVE); NITRITE URINE NEGATIVE (NEGATIVE); OCCULT BLOOD URINE NEGATIVE (NEGATIVE); PH URINE 6.5 (4.5-8.0); PROTEIN URINE TRACE (NEGATIVE); SPECIFIC GRAVITY URINE 1.014 (1.005-1.030); UROBILINOGEN URINE 0.2 E.U./dL (0.2-1.0)
[2019-02-05 21:20] VITALS: BP 151/61
[2019-02-05 22:00] VITALS: BP 106/60
[2019-02-05] MEDS: DEXT 5%/0.45% NACL 1000ML 1,000 ML IV SCH (23:00)
[2019-02-06] VITALS (9 sets, daily range): BP systolic 119–164; BP diastolic 65–89
[2019-02-06 08:00] LABS: CHLORIDE 110 mEq/L (98-107)
[2019-02-06 08:01] LABS: BASOPHILS % 0.5 % (0.0-2.0); EOSINOPHILS % 0.9 % (0.0-5.0); HEMATOCRIT. 37.2 % (36.0-48.0); HEMOGLOBIN. 12.3 g/dL (12.0-16.0); LYMPHOCYTES % 28.1 % (20.0-50.0); MEAN CORPUSCULAR HEMOGLOBIN 29.3 pg (28.0-32.0); MEAN CORPUSCULAR VOLUME 88.8 fL (81.0-99.0); MEAN PLATELET VOLUME 8.3 fl (7.4-10.4); MONOCYTES % 9.2 % (2.0-8.0); NEUTROPHILS % 61.3 % (40.0-76.0); PLATELET 209 x1000/uL (130-400); RED BLOOD CELL COUNT 4.19 mill/uL (4.2-5.4); RED CELL DISTRIBUTION WIDTH 16.5 % (11.6-14.6)
[2019-02-06] MEDS: ENOXAPARIN 40MG/0.4ML SYR SUBCUT SCH (09:56)
[2019-02-06] MEDS: LEVOFLOXACIN 250MG PREMIX 50 ML IV SCH (09:56)
[2019-02-06] MEDS: DEXT 5%/0.45% NACL 1000ML 1,000 ML IV SCH (12:21)
[2019-02-06] MEDS: LORAZEPAM 2MG/ML CPJ IV PRN (21:59)
[2019-02-07] VITALS: BP 152/89
[2019-02-07] MEDS: DEXT 5%/0.45% NACL 1000ML 1,000 ML IV SCH ×2 (02:05→16:29)
[2019-02-07 04:00] VITALS: BP 153/76
[2019-02-07 07:50] VITALS: BP 168/86
[2019-02-07] MEDS: ENOXAPARIN 40MG/0.4ML SYR SUBCUT SCH (08:10)
[2019-02-07] MEDS: LEVOFLOXACIN 250MG PREMIX 50 ML IV SCH (08:12)
[2019-02-07 12:00] VITALS: BP 151/104
[2019-02-07 16:00] VITALS: BP 175/91
[2019-02-07] MEDS: CLONIDINE 0.1MG TABLET PO PRN (16:29)
[2019-02-07 20:00] VITALS: BP 93/69
[2019-02-07] MEDS: LORAZEPAM 2MG/ML CPJ IV PRN (21:42)
[2019-02-08] VITALS (7 sets, daily range): BP systolic 131–166; BP diastolic 70–112
[2019-02-08] MEDS: DEXT 5%/0.45% NACL 1000ML 1,000 ML IV SCH (04:23)
[2019-02-08] MEDS: CLONIDINE 0.1MG TABLET PO PRN ×2 (04:24→16:41)
[2019-02-08] MEDS: LORAZEPAM 2MG/ML CPJ IV PRN ×2 (04:42→23:55)
[2019-02-08] MEDS: ENOXAPARIN 40MG/0.4ML SYR SUBCUT SCH (08:35)
[2019-02-08] MEDS: LEVOFLOXACIN 250MG PREMIX 50 ML IV SCH (09:21)
[2019-02-09] VITALS (7 sets, daily range): BP systolic 110–192; BP diastolic 53–103
[2019-02-09] MEDS: CLONIDINE 0.1MG TABLET PO PRN (04:12)
[2019-02-09] MEDS: ENOXAPARIN 40MG/0.4ML SYR SUBCUT SCH (09:13)
[2019-02-09] MEDS: LORAZEPAM 2MG/ML CPJ IV PRN (14:52)
== END 2019-02-09 17:57 | DRG 871 ==
LOC: ER 13:20 → 5EST 15:33 → EDBEDREQ 15:41 → EDBEDREQTM 15:41 → SUPCPDRO 16:08 → ENRESERV 20:02 → 6EST 02-07 11:37
PROVIDERS: ADMIT Hospitalist; ATTEND Hospitalist
DX: A41.9 Sepsis, unspecified organism (principal); G93.41 Metabolic encephalopathy; E87.2 Acidosis; N39.0 Urinary tract infection, site not specified; F03.90 Unspecified dementia, unspecified severity, without behavioral disturbance, psychotic disturbance, mood disturbance, and anxiety; G40.909 Epilepsy, unspecified, not intractable, without status epilepticus; I11.0 Hypertensive heart disease with heart failure; I50.9 Heart failure, unspecified; K21.9 Gastro-esophageal reflux disease without esophagitis; E78.00 Pure hypercholesterolemia, unspecified; E86.0 Dehydration; Z82.49 Family history of ischemic heart disease and other diseases of the circulatory system; Z79.899 Other long term (current) drug therapy; Z87.440 Personal history of urinary (tract) infections; Z88.0 Allergy status to penicillin
CPT/HCPCS: 36415; 71045; 81003; 83605; 84145; 84484; 93005; 93970; 99291; C1893; J0692; J1650; J1956; J2060; J3370; J7030; J7060

== ENCOUNTER 2019-08-29 10:11 | Inpatient (IN) | payer MEDICARE, MEDICAID ==
[~2019-08-29] VITALS: Ht 160 cm; Wt 50.3 kg
[~2019-08-29 10:11] MED LIST changes: +OMEP20CA14 MT; -OMEP20CA5 MT
[2019-08-29] MEDS ORDERED: DOCUSATE SODIUM 100MG CAPSULE PO PRN (16:15)
[2019-08-29] MEDS ORDERED: GUAIFENESIN 200MG/10ML SUGAR FREE UDC PO PRN (16:15)
[2019-08-29] MEDS ORDERED: CLONIDINE 0.1MG TABLET PO PRN (16:15)
[2019-08-29] MEDS ORDERED: MORPHINE SULFATE 2 MG/ML CPJ (NOT FOR IM USE) IV PRN (16:15)
[2019-08-29] MEDS ORDERED: ONDANSETRON HCL 4MG/2ML INJ IV PRN (16:15)
[2019-08-29] MEDS ORDERED: ACETAMINOPHEN 325MG TABLET PO PRN (16:15)
[2019-08-29] MEDS ORDERED: AZITHROMYCIN 500 MG in DEXT 5% WATER 250 ML IV SCH (16:45)
[2019-08-29] MEDS ORDERED: DOXYCYCLINE 100 MG in DEXT 5% WATER 100 ML IV SCH (16:45)
[2019-08-29] MEDS: LORAZEPAM 2MG/ML CPJ IV PRN (22:15)
[2019-08-30] MEDS: LORAZEPAM 2MG/ML CPJ IV PRN ×2 (01:47→05:46)
[2019-08-30 04:37] LABS: BASOPHILS % 0.1 % (0.0-2.0); CHLORIDE 123 mEq/L (98-107); HEMATOCRIT. 40.6 % (36.0-48.0); HEMOGLOBIN. 12.8 g/dL (12.0-16.0); LYMPHOCYTES % 8.2 % (20.0-50.0); MEAN CORPUSCULAR HEMOGLOBIN 27.6 pg (28.0-32.0); MEAN CORPUSCULAR VOLUME 87.3 fL (81.0-99.0); MEAN PLATELET VOLUME 8.1 fl (7.4-10.4); NEUTROPHILS % 86.7 % (40.0-76.0); PLATELET 174 x1000/uL (130-400); RED BLOOD CELL COUNT 4.65 mill/uL (4.2-5.4); RED CELL DISTRIBUTION WIDTH 16.9 % (11.6-14.6)
[2019-08-30] MEDS ORDERED: DOXYCYCLINE 100 MG in DEXT 5% WATER 100 ML IV SCH ×2 (06:00→18:00)
[2019-08-30] MEDS ORDERED: ENOXAPARIN 40MG/0.4ML SYR SUBCUT SCH (09:43)
[2019-08-30 13:00] VITALS: BP 138/75
[2019-08-30 14:00] VITALS: BP 145/90
[2019-08-30 16:00] VITALS: BP 125/71
[2019-08-30] MEDS ORDERED: LORAZEPAM 2MG/ML CPJ IV PRN (16:00)
[2019-08-30] MEDS ORDERED: AZITHROMYCIN 500 MG in DEXT 5% WATER 250 ML IV SCH (16:30)
[2019-08-30] MEDS ORDERED: AZITHROMYCIN 250 MG in DEXT 5% WATER 250 ML IV SCH (17:00)
[2019-08-30] MEDS: DOXYCYCLINE HYCLATE 100MG CAPSULE PO SCH (17:52)
[2019-08-30 20:00] VITALS: BP 153/99
[2019-08-31] VITALS: BP 145/91
[2019-08-31 04:00] VITALS: BP 155/98
[2019-08-31] MEDS: DOXYCYCLINE HYCLATE 100MG CAPSULE PO SCH (04:57)
[2019-08-31 08:00] VITALS: BP 187/100
[2019-08-31] MEDS ORDERED: ENOXAPARIN 30MG/0.3ML SYR SUBCUT SCH (09:00)
[2019-08-31] MEDS ORDERED: HYDRALAZINE 20MG/ML VIAL IV PRN (11:15)
[2019-08-31 11:50] VITALS: BP 162/89
[2019-08-31] MEDS ORDERED: ENALAPRIL 1.25MG/ML VIAL 1ML IV SCH (12:00)
[2019-08-31 12:27] LABS: COVID-19 PCR RNA DETECTED
[2019-08-31 12:28] LABS: COVID-19 PCR RNA NOT DETECTED
[2019-09-01] MEDS ORDERED: AZITHROMYCIN 250 MG TABLET PO SCH (17:00)
== END 2019-08-31 15:10 | disposition expired | DRG 871 ==
LOC: ER 10:11 → 7EST 13:10 → EDBEDREQ 13:20 → CANBEDREQ 13:30 → ENRESERV 08-30 10:04
PROVIDERS: ADMIT Hospitalist; ATTEND Hospitalist
DX: A41.89 Other specified sepsis (principal); J96.01 Acute respiratory failure with hypoxia; J12.89 Other viral pneumonia; U07.1 COVID-19; I50.32 Chronic diastolic (congestive) heart failure; E87.0 Hyperosmolality and hypernatremia; G40.909 Epilepsy, unspecified, not intractable, without status epilepticus; I11.0 Hypertensive heart disease with heart failure; K21.9 Gastro-esophageal reflux disease without esophagitis; F03.90 Unspecified dementia, unspecified severity, without behavioral disturbance, psychotic disturbance, mood disturbance, and anxiety; B34.9 Viral infection, unspecified; E78.5 Hyperlipidemia, unspecified; D72.810 Lymphocytopenia; Z20.828 Contact with and (suspected) exposure to other viral communicable diseases; F41.9 Anxiety disorder, unspecified; Z51.5 Encounter for palliative care; G89.29 Other chronic pain; E78.00 Pure hypercholesterolemia, unspecified; M54.9 Dorsalgia, unspecified; Z66 Do not resuscitate; Z87.440 Personal history of urinary (tract) infections; Z82.49 Family history of ischemic heart disease and other diseases of the circulatory system; Z88.0 Allergy status to penicillin; Z79.899 Other long term (current) drug therapy
CPT/HCPCS: 36415; 80053; 85025; 99285; J0456; J1650; J2060; J2270; J3490; J7060